=== PATIENT | female | born 1965 | race Caucasian/White ===

== ENCOUNTER → 2018-05-25 | Outpatient (CLI) | payer BC ==
[~2018-05-25] MED LIST: PRENTAB26 PO; ZANTAC PO
--- NOTE | 2018-05-26 15:13 | MAMMOGRAPHY REPORT ---
BILATERAL DIGITAL SCREENING MAMMOGRAM TOMOSYNTHESIS WITH CAD: 05/25/2018 CLINICAL HISTORY: Patient presents for routine screening. She pointed out an area of lump and bruisin g after a fall in January 2018. TECHNIQUE: The study was acquired using full field digital technology and interpreted from soft copy. Breast tomosynthesis in addition to standard 2D mammography was performed. Current study was also ev aluated with a Computer Aided Detection (CAD) system. COMPARISON: Comparison is made to exam dated: 07/16/2015 mammogram - [facility]. BREAST COMPOSITION: The tissue of both breasts is almost entirely fatty. FINDINGS: A triangular palpable marker overlies the upper inner anterior left breast. Adjacent to th e triangle marker is a benign oil cyst measuring 11 mm in diameter, which correlates with the clinica l history of bruising after trauma. This finding is benign. There is a stable benign coarse calcifi cation in the right breast. No suspicious mass, architectural distortion or cluster of microcalcifica tions is seen. IMPRESSION: ACR BI-RADS CATEGORY 1: NEGATIVE There is no mammographic evidence of malignancy. A 1 year screening mammogram is recommended.( [id number]) The patient will receive written notification of the results. Some breast cancers are not detected with mammography. A negative mammographic report should not tess y biopsy if a clinically suggestive mass is present. Kindra Hill M.D. ay/:05/25/2018 15:58:20 Clutch Specialist: RT Jackie(R)(M), [facility] letter sent: Normal 1/2 BI-RADS Code: ACR BI-RADS Category 1: Negative
== END | disposition home or self-care (01) ==
LOC: C.MAMM 14:57
PROVIDERS: ATTEND Physician Assistant
DX: Z12.31 Encounter for screening mammogram for malignant neoplasm of breast (principal)

== ENCOUNTER 2024-05-22 06:57 | Observation (INO) ==
--- NOTE | 2024-04-18 14:19 | PAT Medication Instructions ---
Medication Instructions Date of Service April 18, 2024 Home Medications bziilnq-rslpzxmvorueo-uzslliwf 250 mg-250 mg-65 mg tablet (Excedrin Migraine) 1 tab PO Q6H PRN Pain ibuprofen 200 mg tablet (Advil) 400 mg PO Q6H PRN Pain naproxen sodium 220 mg capsule (Aleve) 220 mg PO Q12H PRN Pain turmeric 500 mg-black pepper extract 3 mg capsule 1 cap PO DAILY MEDICATION INSTRUCTIONS: ASK your surgeon for instructions umineyh-kkolxnjspgkmc-ejemfpiw 250 mg-250 mg-65 mg tablet (Excedrin Migraine) 1 tab PO Q6H PRN Pain ibuprofen 200 mg tablet (Advil) 400 mg PO Q6H PRN Pain naproxen sodium 220 mg capsule (Aleve) 220 mg PO Q12H PRN Pain STOP taking 2 weeks before surgery turmeric 500 mg-black pepper extract 3 mg capsule 1 cap PO DAILY Other Notes Remember: NOTHING TO EAT OR DRINK AFTER MIDNIGHT If you have any questions please call us at [phone] or [phone] or [phone] or [phone]
--- NOTE | 2024-04-24 09:39 | Anesthesiology Consultation ---
Date of Service April 24, 2024 Assessment & Plan (1) Encounter for pre-operative examination: - Infectious disease screening: Per assessment on 04/24/24: No known recent infectious disease contacts or current infectious disease symptoms. - Outpatient joint assessment: Pt currently scheduled for inpatient pathway. If surgeon requests review for outpatient joint pathway, patient is an acceptable candidate for outpatient joint program from anesthesia standpoint pending surgeon's office assessment that patient is motivated, has good support and completes Same Day Joint Program preop requirements. Chart Review Chart Review: Acceptable Risk for Surgery and Patient seen in Pre Admission Testing Teaching & Discussion Pre-Anesthesia Teaching/Discussion Notes: Instructed NPO after midnight before surgery,except medications with 15 cc of water. Medication instructions provided according to the PAT guidelines. History Surgery Operation Date: 05/22/24 08:00 Proposed Procedures p Right Anterior Total Hip Arthroplasty - Johnie Galvan DO Height/Weight Height: 5 ft 5 in Weight: 123.9 kg Allergies Allergy/AdvReac Type Severity Reaction Status Date / Time No Known Allergies Allergy Unknown Verified 04/10/24 11:16 Medications Home Medications Medication Instructions Recorded Confirmed Last Taken dbvjsbg-xtgaivfchiqqm-dezhjotd 250 1 tab PO Q6H PRN Pain 04/10/24 04/10/24 Unknown mg-250 mg-65 mg tablet (Excedrin Migraine) ibuprofen 200 mg tablet (Advil) 400 mg PO Q6H PRN Pain 04/10/24 04/10/24 Unknown naproxen sodium 220 mg capsule 220 mg PO Q12H PRN Pain 04/10/24 04/10/24 Unknown (Aleve) turmeric 500 mg-black pepper 1 cap PO DAILY 04/10/24 04/10/24 Unknown extract 3 mg capsule Past Medical History Medical History Osteoarthritis of right hip Exercise / Class Metabolic Activity II 4-5 Yardwork/Stairs/Walk up hill Past Surgical History Surgical History Hx laparoscopic cholecystectomy Hx of anterior cruciate ligament tear reconstruction right knee Hx of arthroscopy of shoulder right Hx of gynecological procedure laser cells for abnormal cells, ~age 13 Past Anesthesia History No Hx of Anesthesia Complications and No Family Hx of Anesthesia Complications History of PONV No Hx of PONV and No Hx of Motion Sickness Social History Smoking Status: Never smoker Do You Dip or Chew Tobacco: No Hx Alcohol Use: Yes alcohol intake frequency: holidays/special occasions only Hx Substance Use: No substance use type: does not use Review of Systems Patient denies chest pain, shortness of breath, dyspnea on exertion, fever, chills, cough, wheezing, palpitations. Physical Exam Vital Signs BP 150/87 P 69 TEMP 98.0 SP02 95%RA RESP 16 Physical Full cervical extension range of motion. Full TMJ range of motion. TMD 3 finger breaths Mallampati Score 2 Dentition: missing molars Lungs: clear throughout to auscultation Cardiac: regular rate and rhythm, no murmurs noted Spine: normal Carotid arteries: negative bruit Extremities: no LE edema Lab Results Anesthesia Preop Results Results Anesthesia Widget: WBC 7.49 K/ul (4.8-10.8) 04/24/24 Hgb 14.6 g/dl (12.0-16.0) 04/24/24 Hct 44.8 % (37.0-47.0) 04/24/24 Plt 349 K/uL (130-400) 04/24/24 Na 138 mmol/L (136-145) 04/24/24 K 4.4 mmol/L (3.5-5.1) 04/24/24 Cl 104 mmol/L (98-107) 04/24/24 CO2 29 mmol/L (21-32) 04/24/24 BUN 11 mg/dl (6-23) 04/24/24 Creat 0.87 mg/dl (0.6-1.2) 04/24/24 Glucose Level 105 mg/dl (70-99(Fasting)) H 04/24/24 PT 10.1 Seconds (9.0-12.0) 04/24/24 PTT 26 Seconds (21-31) 04/24/24 INR 0.9 (0.9-1.1) 04/24/24 Blood Type A Positive 04/24/24 Antibody Screen NEGATIVE 04/24/24 Testing Electrocardiogram Date: 04/24/24 NSR at 67bpm. Cannot r/o inferior infarct, age undetermined. iRBBB. *No cardiopulmonary limiting complaints and good functional status reported by patient at PAT visit at time of EKG* Chest X-Ray Date: 04/24/24 FINDINGS: The heart is mildly enlarged. No pneumothorax, pleural effusion or pulmonary edema. Mild right hemidiaphragmatic elevation. Cholecystectomy. Bones appear grossly intact. IMPRESSION: No acute process.
--- NOTE | 2024-05-18 11:50 | History & Physical Report ---
Date of Service May 18, 2024 Assessment & Plan (1) Osteoarthritis of right hip: We will proceed with a right anterior total of arthroplasty. Postoperatively she will be started on aspirin for DVT prophylaxis and kept overnight in the hospital for postop medical management. She plans to use energy physical therapy upon discharge. History of Present Illness Chief Complaint: Osteoarthritis of the right hip. Primary Care Provider: Jesika Mcconnell is a pleasant 58-year-old female who has been dealing with chronic increasing right hip and groin pain. This has been going on for years. She has been seeing a chiropractor. The chiropractor treatment is no longer helping. She has pain mostly in her groin. She has trouble getting in and out of a car. X-rays and clinical examination been diagnostic for advanced arthritis of the right hip. After failing conservative treatment, she has elected to proceed with a right total knee arthroplasty. Allergies Allergy/AdvReac Type Severity Reaction Status Date / Time No Known Allergies Allergy Unknown Verified 04/10/24 11:16 Home Medications Medication Instructions Recorded Confirmed Type ubzqnfk-pblnxdnnqfglb-nakwpbgp 250 1 tab PO Q6H PRN Pain 04/10/24 04/10/24 History mg-250 mg-65 mg tablet (Excedrin Migraine) ibuprofen 200 mg tablet (Advil) 400 mg PO Q6H PRN Pain 04/10/24 04/10/24 History naproxen sodium 220 mg capsule 220 mg PO Q12H PRN Pain 04/10/24 04/10/24 History (Aleve) turmeric 500 mg-black pepper 1 cap PO DAILY 04/10/24 04/10/24 History extract 3 mg capsule Past Med/Surg History Problem List Encounter for pre-operative examination Osteoarthritis of right hip Medical History Osteoarthritis of right hip Surgical History Hx of gynecological procedure laser cells for abnormal cells, ~age 13 Hx of arthroscopy of shoulder right Hx of anterior cruciate ligament tear reconstruction right knee Hx laparoscopic cholecystectomy Social History Smoking Status: Never smoker Second Hand Exposure: No; Do You Dip or Chew Tobacco: No; Tobacco Cessation Education Requested by Patient: No Hx Alcohol Use: Yes Hx Substance Use: No Preferred Language: Liberian Communication Ability: Effective Aws Solution Architect Required: No Beliefs That Will Affect Care: None Current Living Situation: Family Other Information That Helps Us Care for You: No Feels Safe at Home: Yes Safety Concerns: Feels Safe At This Time Assistive Devices: Contacts and Glasses Review of Systems All systems reviewed & are unremarkable except as noted in HPI & below. Physical Exam On physical examination of the right hip, he has decreased range of motion. He has pain with forced internal and external rotation. Most of his pain is located in the groin.. Constitutional WD/WN, vitals as above Eyes PERRL, conjunctivae normal, anicteric sclerae ENMT external ear and nose normal, oropharynx normal Neck trachea midline, no thyromegaly Respiratory normal respiratory effort Cardiovascular RRR, no murmur, no edema Gastrointestinal (Abdomen) normal bowel sounds, soft, nontender, no hepatosplenomegaly Psychiatric A+Ox3, euthymic affect Results & Data Results & Data Laboratory Results . Diagnostic Findings X-rays of the right hip show advanced osteoarthritis with joint space narrowing, osteophyte formation, and sxbx-jm-wuft articulation. PG Care Time/CCT Total # of Minutes Spent Total Time Spent with Patient: Total time spent is greater than 50% in coordination of care (as documented) at patient's floor/unit and/or counseling patient: Coding Level of Care Code None Diagnoses Osteoarthritis of right hip M16.11
[~2024-05-22 06:57] MED LIST changes: -PRENTAB26 PO; +ROPIVACAINE 0.5% 5 MG/ML 30 ML VIAL ONE; -ZANTAC PO
[2024-05-22] MEDS: LR 500ML BOLUS, THEN 15ML/HR IV SCH (07:39)
[2024-05-22] MEDS: ACETAMINOPHEN 500 MG TAB PO SCH ×2 (07:40→15:54)
[2024-05-22] MEDS: FAMOTIDINE 20 MG TAB PO SCH (07:40)
[2024-05-22] MEDS: GABAPENTIN 600 MG DOSE PO SCH (07:40)
[2024-05-22] MEDS: dexAMETHasone**PF** 10 MG/ML VIAL IV SCH (07:40)
[2024-05-22] MEDS: LR 60ML/HR IV SCH (07:41)
--- NOTE | 2024-05-22 08:00 | History & Physical Bridge Note ---
Date of Service May 22, 2024 History & Physical Bridge Note I have examined the patient, reviewed the History & Physical and in the interval since the performance of the History & Physical I have noted the following changes of clinical significance: no changes noted
[2024-05-22] MEDS ORDERED: PROPOFOL IV EMULSION 10 MG/ML 20 ML VIAL IV ONE (08:10)
[2024-05-22] MEDS ORDERED: MIDAZOLAM HCL 1 MG/ML 2ML VIAL ONE (08:11)
[2024-05-22] MEDS: TRANEXAMIC ACID 1,000 MG **IV Pre-op IV SCH (09:02)
[2024-05-22] MEDS ORDERED: KETOROLAC 30 MG/ML VIAL IV PRN (09:09)
[2024-05-22] MEDS ORDERED: HYDROmorphone INJ 1 MG/ML SYRINGE IV PRN (09:09)
[2024-05-22] MEDS ORDERED: ONDANSETRON INJ 2 MG/ML 2 ML VIAL IV PRN ×2 (09:09→12:53)
[2024-05-22] MEDS ORDERED: ATROPINE SULFATE 0.1 MG/ML 10ML SYR IV PRN (09:09)
[2024-05-22] MEDS ORDERED: ePHEDrine sulfate 50 MG/ML AMP IV PRN (09:09)
[2024-05-22] MEDS: ceFAZolin 3000MG 3,000 MG/72.5 ML BAG IV SCH (09:10)
[2024-05-22] MEDS: ROPIV 0.5% 246mg, Ketorolac 30mg, EPINEPHrine 0.5mg in NSS INFIL SCH (09:47)
[2024-05-22] MEDS: ORTHO JOINT ANESTHETIC ONE (09:47)
[2024-05-22] MEDS: TRANEXAMIC ACID 1,000 MG **IV Intra-op IV SCH (10:24)
--- NOTE | 2024-05-22 10:25 | Operative Report ---
PG Post Operative Report Pre & Post Diagnosis Operation Date: 05/22/24 09:00 Pre-Op Diagnosis: Right Hip Osteoarthritis Post-Op Diagnosis: Right Hip Osteoarthritis I identified the patient and participated in the time-out.: Yes Procedure Operation Date: 05/22/24 09:00 Actual Procedures p Right Anterior Total Hip Arthroplasty, Uncemented(Right) - Johnie Galvan DO Surgeon Johnie Galvan DO Metaphysics Teacher Johnie Allen PA-C Estimated Blood Loss 250 Findings Consistent with Post-Op Diagnosis Specimens Right femoral head Description of Procedure Implants used I used a ZimmerBiomet total hip arthroplasty system with a size 0 high offset Avenir Complete stem, a 50 mm G7 cup with a 25mm screw, an E1 polyethylene liner, a 36 mm ceramic head with a 0 neck. Jayesh arrived at the hospital for the above procedure. She was seen in the preoperative holding area and the operative extremity was identified and signed. She was given a spinal anesthetic, a preoperative antibiotic, and TXA. She was then taken back to the operating room and laid on the table in the supine position. She was given basic sedation. The operative leg was secured to a Puristst leg positioner. The hip was then prepped and draped in sterile fashion. A timeout was done and the patient and the operative extremity was properly identified. An anterior approach was used. Dissection was taken down through the fascia and the tensor muscle belly was retracted laterally and the rectus was retracted medially. The circumflex vessels were identified and ligated. The capsule was then incised and tagged for later repair. The femoral neck was then cut and the femoral head was removed. The acetabulum was exposed. Time was spent doing a complete circumferential labral release. Sequential reaming of the acetabulum up to a size 49 reamer was done. Final reamings were done under fluoroscopy to ensure appropriate version. A Biomet 50 mm G7 cup was then impacted into place. A single 25 mm screw was placed. The E1 polyethylene liner was then snapped into place. Surrounding soft tissues were then injected with 100 cc of an orthopedic pain control cocktail. The proximal femur was then exposed. Sequential broaching up to a size 0 broach was done. Off that broach a size 36 head with a 0 neck was trialed. The hip was reduced and fluoroscopic images showed anatomic alignment of the implants in acceptable length. The broach was removed. The final size 0 high offset Avenir Complete stem was then impacted into place. A ceramic 36 mm head with a 0 neck was then impacted onto the stem and the hip was reduced. Final fluoroscopic images showed anatomic alignment of the hip. The capsule was then closed with #1 Vicryl suture. A dilute betadyne lavage was then done for 3 minutes. The joint was then irrigated with normal saline solution. The fascia was closed with #1 PDS suture. Skin was closed with 2-0 Vicryl, marlo, and a Silverlon dressing. She was then transferred to a hospital bed and taken to the post anesthesia care unit in stable condition. She tolerated the procedure well. Johnie Allen PA-C, was present for the entire procedure. He was critical for patient positioning, prepping, draping, retraction exposure, wound closure and application of sterile dressing. I attest to the content of the Intraoperative Record and any orders documented therein. Any exceptions are noted below.
--- NOTE | 2024-05-22 11:15 | XRay Report ---
XR hip 1V RT w pelvis CLINICAL HISTORY: Postoperative evaluation. COMPARISON: Right hip radiograph March 08, 2024. FINDINGS: Alignment of the total right hip arthroplasty is anatomic. There is no periprosthetic frac ture or unexpected radiopaque foreign body. There are skin marlo. IMPRESSION: Expected findings following total right hip arthroplasty. ACT 112: Negative or not required by law. Electronically signed by: Chris Pina M.D. 05/22/2024 11:14 AM
--- NOTE | 2024-05-22 11:38 | Anesthesiology Progress Note ---
Date of Service May 22, 2024 Anesthesia Post Procedure Vital Signs Vital Signs: Temp Pulse Pulse Resp BP Pulse Ox O2 Del Method 05/22/24 11:25 36.3 C L 72 18 119/85 97 Room Air 05/22/24 11:15 74 19 128/79 98 Room Air 05/22/24 11:05 83 19 124/76 100 Oxymask 05/22/24 10:55 84 21 134/76 100 Oxymask 05/22/24 10:49 36.3 C L 90 14 122/76 97 Oxymask 05/22/24 07:28 36.8 C 87 18 152/90 H 95 Room Air O2 Flow Rate 05/22/24 11:25 05/22/24 11:15 05/22/24 11:05 2 05/22/24 10:55 3 05/22/24 10:49 5 05/22/24 07:28 Transfer of Care Handoff Completed per policy Notes Mental Status: alert / awake / arousable Patient Amnestic to Procedure: Yes Nausea / Vomiting: adequately controlled Pain: adequately controlled Airway Patency, RR, SpO2: stable & adequate BP & HR: stable & adequate Hydration State: stable & adequate Neuraxial Anesthesia: was administered and sensory block is resolving Anesthetic Complications: no major complications apparent
--- NOTE | 2024-05-22 11:49 | Fluoroscopy Report ---
FL hip RT 1V CLINICAL HISTORY: RT ANTERIOR HIP COMPARISON STUDY: Right hip radiographs March 08, 2024. FLUOROSCOPY TIME: 15 seconds. Ka, r: 3.9883 mGy FLUOROSCOPIC IMAGES: 1 FINDINGS: Fluoroscopy was performed during anterior total right hip arthroplasty. Hardware intact. No fractures are identified by fluoroscopy. There are no unexpected radiopaque foreign bodies. IMPRESSION: Fluoroscopy provided during anterior total right hip arthroplasty. ACT 112: Negative or not required by law. Electronically signed by: Chris Pina M.D. 05/22/2024 11:48 AM
[2024-05-22] MEDS ORDERED: METOCLOPRAMIDE HCL INJ 5 MG/ML 2 ML VIAL IV PRN (12:53)
[2024-05-22] MEDS ORDERED: HYDROmorphone INJ 0.5 MG/0.5 ML SYR IV PRN (12:53)
[2024-05-22] MEDS ORDERED: bisacodyL 10 MG SUPP PR PRN (12:53)
[2024-05-22] MEDS ORDERED: NALOXONE HCL 0.4 MG/1 ML VIAL/CARP IV PRN (12:53)
[2024-05-22] MEDS ORDERED: MAGNESIUM HYDROXIDE SUSP 30 ML UDC PO PRN (12:53)
[2024-05-22] MEDS ORDERED: RANITIDINE HCL 150 MG PO PRN (12:53)
[2024-05-22] MEDS: SODIUM CHLORIDE 0.9% 1,000 ML IV SCH (13:46)
[2024-05-22] MEDS: KETOROLAC 30 MG/ML VIAL IV SCH (13:46)
[2024-05-22] MEDS: ceFAZolin 2000MG 2,000 MG/15 ML SYR IV SCH (17:11)
[2024-05-22] MEDS: ASPIRIN 81 MG ECTAB PO SCH (20:25)
[2024-05-22] MEDS: oxyCODONE HCL IR 5 MG TAB (IMMEDIATE RELEASE) PO PRN (20:25)
[2024-05-22] MEDS: SENNA 8.6 MG TAB PO SCH (20:25)
[2024-05-22] MEDS: DOCUSATE SODIUM 100 MG CAP PO SCH (20:25)
--- NOTE | 2024-05-23 06:52 | Orthopedic Progress Note ---
Date of Service May 23, 2024 Assessment & Plan (1) Status post right hip replacement: Overall she is doing very well. She is not having much pain in the right hip. She will be seen by physical therapy today for ambulation and range of motion exercises. She is on aspirin for DVT prophylaxis. She can be discharged home later today. She will follow-up orthopedics in 2 weeks. Subjective Jayesh was seen and examined at bedside this morning. Overall she is doing very well. She is not having much pain in the right hip. She has been up and ambulating to the bathroom. She has no complaints.. Review of Systems All systems reviewed & are unremarkable except as noted in HPI & below. Physical Exam On physical examination the right hip, the dressing is clean and dry. Her leg is out full extension. She has active dorsiflexion plantarflexion of her right ankle.. Results & Data Results & Data Laboratory Results . Diagnostic Findings Postoperative x-rays of the right hip show the prosthesis to be in anatomic alignment without any evidence of fracture complication, or loosening.. PG Care Time/CCT Total # of Minutes Spent Total Time Spent with Patient: Total time spent is greater than 50% in coordination of care (as documented) at patient's floor/unit and/or counseling patient: Coding Level of Care Code 34492 Post Operative Follow-Up Diagnoses Status post right hip replacement Z96.641
--- NOTE | 2024-05-23 06:53 | Discharge Summary ---
Date of Service May 23, 2024 Admission HPI (Per Admitting) Jayesh is a pleasant 58-year-old female who has been dealing with chronic increasing right hip and groin pain. This has been going on for years. She has been seeing a chiropractor. The chiropractor treatment is no longer helping. She has pain mostly in her groin. She has trouble getting in and out of a car. X-rays and clinical examination been diagnostic for advanced arthritis of the right hip. After failing conservative treatment, she has elected to proceed with a right total knee arthroplasty. Admission Exam (Per Admitting) On physical examination of the right hip, he has decreased range of motion. He has pain with forced internal and external rotation. Most of his pain is located in the groin.. Principal Diagnosis Same as "Discharge Diagnosis" noted below under Discharge Instructions. Discharge Exam On physical examination the right hip, the dressing is clean and dry. Her leg is out full extension. She has active dorsiflexion plantarflexion of her right ankle.. Discharge Data Procedures Performed Operation Date: 05/22/24 09:00 Actual Procedures p Right Anterior Total Hip Arthroplasty, Uncemented(Right) - Johnie Galvan DO Hospital Course (1) Status post right hip replacement: On May 22, [address] [facility] and underwent a right hip replacement without complication. She had a spinal anesthetic. Postoperatively she was started on aspirin for DVT prophylaxis and transferred to the general orthopedic floors. Her hospital course was uneventful. On postop day #1, her vital signs were stable and her pain was well-controlled. She was able to participate well with physical therapy doing ambulation and range of motion exercises. She was then discharged home. She will follow-up orthopedics in 2 weeks. PG Care Time/CCT Total # of Minutes Spent Total Time Spent with Patient: Total time spent is greater than 50% in coordination of care (as documented) at patient's floor/unit and/or counseling patient: Discharge Plan Discharge Items Patient Disposition: Home - Self-Care Reason For Visit: Right Hip Degenerative Joint Disease Discharge Diagnosis: Right hip replacement Activity: Per Instructions section Non-emergency contact: Surgeon Call non-emergency contact if: your wound has increased redness and your wound has increased drainage Follow-up/Referrals: Jesika Kelley, N.P. [Primary Care Provider] - Diet: Regular Addtl Attending Provider Instructions: Activity and Therapy Recommendations: * If you are using [facility] then therapy will be provided at your home until they feel you have accomplished all of your goals. * If you are using [facility] then Physical Therapy will be provided until they feel you are ready to start Outpatient Physical Therapy. * If you are not using home therapy then Outpatient Physical Therapy should start about 3-5 days from your day of surgery. Therapy will last about 6-10 weeks * You were shown a series of exercises in the hospital. Do these exercises three times each day including the exercises you were shown in physical therapy. * Get up and walk several times each day.~ For the first four weeks, try not to stand or walk for more than one hour at a time. If you do stand or walk for more than one hour, you will not hurt anything, but your leg will likely swell.~~ * As you feel comfortable, you may change from the walker or crutches to a cane and~then to independent walking. Medications: * Narcotic You will likely be sent home from the hospital with a prescription for the narcotic pain medication that worked best throughout your stay. * Cefadroxil -take the antibiotic twice a day for 10 days to help prevent infection. * Aspirin Most patients will be required to take Aspirin 81mg twice a day for 6 weeks after surgery. This is obtained [id number] and a prescription is not necessary. * Other medications may be prescribed for specific circumstances. If you have any questions, please call the office at . * Resume previous home medications unless otherwise instructed TEDs/Elastic Stockings: The white elastic stockings help limit swelling and prevent blood clots from forming in your legs. The more you wear them, the more they work. Wear them for six weeks. Dressing Care: Leave the Silverlon dressing in place for 7 days. After 7 days you may remove the dressing. If the incision is not draining then you may leave the marlo open to air. If there is a little bit of drainage or if the marlo are getting stuck on your clothing then cover the incision with a dry dressing. The marlo will be removed at your 2 week follow-up appointment. Showering: You may shower with the Silverlon dressing in place. Do not let the shower spray hit the dressing directly. Pat the Silverlon dressing dry. If the dressing becomes wet underneath, then simply remove the dressing. Keep the incision dry until you are 7 days out from the day of surgery. After 7 days you may remove the Silverlon dressing and shower with the marlo exposed. Let soapy water run over the marlo and pat them dry. Do not scrub or soak the incision. Things To Watch For: * Drainage from the incision site that occurs more than one week after your surgery. * Increased redness at the incision site. * Fever above 102 degrees Fahrenheit. * Unusual chest pain or shortness of breath. * Call [facility] at with any of the above problems Follow-Up Visit: Follow-up with Dr. Galvan's PA (Johnie Allen) 2-3 weeks after your day of surgery. He will remove your marlo and answer any questions. If you have any additional questions or concerns, Dr Galvan is usually in the office at the same time and will be available An appointment was probably scheduled when you signed-up for surgery in the office. If you have any questions call Office Instructions: More detailed instructions as well as Frequently Asked Questions were provided in a folder by our office when you signed-up for surgery. Please review these instructions when you get home. If you have any further questions or concerns, please feel free to call the office at [phone] Pending Studies at Discharge: No Stand-Alone Forms: My [facility] [employer], Smoking Cessation Medications and DC Order Prescriptions: New oxycodone 5 mg Tablet 5 mg PO Q4H PRN (Reason: pain) Qty: 30 0RF cefadroxil 500 mg capsule 500 mg PO BID 10 Days Qty: 20 0RF aspirin 81 mg Tablet,Delayed Release (Dr/Ec) 81 mg PO BID Qty: 0 0RF Continued ibuprofen [Advil] 200 mg Tablet 400 mg PO Q6H PRN (Reason: Pain) Excedrin Migraine 250-250-65 mg Tablet 1 tab PO Q6H PRN (Reason: Pain) naproxen sodium [Aleve] 220 mg Capsule 220 mg PO Q12H PRN (Reason: Pain) turmeric-turmeric ext-pepper 500-3 mg Capsule 1 cap PO DAILY acetaminophen 500 mg Tablet 500 mg PO QID PRN (Reason: Pain) ranitidine HCl [Zantac] 150 mg Capsule 150 mg PO DAILY PRN (Reason: Gastric Reflux) Discharge Orders: Discharge Order (Routine); Ordered 05/23/24 Ordered By: Johnie Galvan Admission Data Admit Date/Time: 05/22/24 10:50 Attending Provider: Johnie Galvan Admit Provider: Johnie Galvan Primary Care Provider: Jesika Kelley
[2024-05-23] MEDS: MULTIVITAMIN TAB PO SCH (07:56)
[2024-05-23] MEDS: dexAMETHasone 4 MG TAB PO SCH (07:56)
== END 2024-05-23 11:51 | disposition home or self-care (01) ==
LOC: ASU 06:57 → 3E 06:57